=== PATIENT | female | born 1940 | race Caucasian/White ===

== ENCOUNTER 2016-11-03 22:39 | Inpatient (IN) | payer OTHER, MEDICARE, BC ==
[~2016-11-03] VITALS: Ht 162.6 cm; Wt 83.8 kg
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
--- NOTE | ~2016-11-03 | OR ---
PATIENT'S NAME: TG DAY [facility] AGE: 76 Y [address] ROOM: [place] [address] LOCATION: [facility] ADMIT DATE: 11/03/2016 OR/Procedure Report DISCHARGE DATE: FAMILY PHYSICIAN: Reyes Crouch MD ATTENDING PHYSICIAN: Noel Ellis SURGEON: Noel Ellis MD FEATHER DUSTER WINDER: DATE OF PROCEDURE: 11/06/2016 PREOPERATIVE DIAGNOSIS: Right rib fractures with effusion. POSTOPERATIVE DIAGNOSIS: Right rib fractures with effusion. PROCEDURE: Right tube thoracostomy. FINDINGS: A 1000 mL of bloody fluid was obtained almost immediately. COMPLICATIONS: None. DESCRIPTION OF PROCEDURE: After informed consent was obtained in the patient's room, she was supine. Her right chest was cleansed with ChloraPrep and sterilely draped. Local anesthetic was then infiltrated on the right chest wall. A small stab incision was created. An aspiration needle was then inserted beneath the intercostal spaces. Blood was aspirated. Upon initial aspiration of the blood, a wire was then threaded using Seldinger technique. The needle was removed. The wire remained. A dilator was then placed over the wire followed by insertion of a 20-Portuguese chest tube. This was placed to suction. Approximately 1 L of bloody fluid was obtained. The chest tube was sewn into position and placed to suction. NOEL ELLIS MD BJO/modl /[id number] d: 11/06/161851 t: 11/24/16 1404, OPERATIVE SUMMARY
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
[2016-11-04 04:25] LABS: BASOPHIL % 0.2 %; HEMATOCRIT 39.2 % (33.0-46.0); HEMOGLOBIN 13.3 g/dL (10.0-15.0); IMMATURE GRANULOCYTE # 0.1 K/uL (0.0-0.3); IMMATURE GRANULOCYTE % 0.7 %; LYMPHOCYTE # 0.7 K/uL (0.8-4.0); LYMPHOCYTE % 4.8 %; MCH 33.3 pg (27.0-34.0); MCHC 33.9 gm/dL (32.0-36.5); MCV 98.2 fl (83.0-98.0); MONOCYTE # 0.8 K/uL (0.0-1.0); MONOCYTE % 5.4 %; MPV 9.3 fl (9.4-12.4); NEUTROPHIL # (ANC) 13.1 K/uL (1.8-7.8); NEUTROPHIL % 88.9 %; NRBC % 0 /100WBC (0-0.00); PLATELET COUNT 247 K/uL (150-450); RBC 3.99 M/uL (3.50-5.50); RDW-CV 13.4 % (11.9-14.6); WBC 14.7 K/uL (4.0-11.0)
[2016-11-04 04:45] LABS: ALBUMIN 3.1 gm/dL (3.5-5.0); ALK PHOS 90 IU/L (33-138); ALT 58 IU/L (12-78); ANION GAP 12.6 (10.0-19.0); AST 84 IU/L (10-40); BLOOD UREA NITROGEN 10 mg/dL (6-24); CALCIUM 7.7 mg/dL (8.5-10.5); CHLORIDE 99 mMol/L (96-110); CO2 27 mMol/L (22-32); CREATININE 0.7 mg/dL (0.5-1.1); ESTIMATED GFR (MDRD EQUATION) > 60; POTASSIUM 3.6 mMol/L (3.7-5.1); SODIUM 135 mMol/L (135-145); TOTAL BILIRUBIN 0.7 mg/dL (0.0-1.5); TOTAL PROTEIN 6.6 g/dL (6.0-8.4)
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
--- NOTE | 2016-11-04 05:24 | NUR ---
Significant Event: A/OX3. DENIES NUMBNESS AND TINGLING. MOVES ALL EXTREMITIES SPONTANEOUSLY AND TO COMMAND. PAIN TO LOWER BACK. ON DILAUDID HANSARD REPORTER. 0.1MG/HR CONTINUOUS, 0.1MG DEMAND Q 10 MINUTES. PATIENT USED 1.32MG THIS SHIFT WITH 12 DEMANDS AND 10 DELIVERED DEMANDS. LEFT FOREARM IV IN LEFT AC RUNNING DILAUDID HANSARD REPORTER AND D5 1/2NS 20MEQ K AT 75/HR. VSS ON 3L OF O2. LUNGS SOUND CLEAR AND UPPER LOBES AND DIMINISHED WITH RHONCHI IN LOWER LOBES. HARDING CATHETER INTACT. SCDS INTACT. Follow up: PT TO SEE TODAY. PAIN CONTROL.
[2016-11-04] MEDS ORDERED: K-TAB 10MEQ10 MEQ PO (08:55)
[2016-11-04] MEDS ORDERED: TYLENOL325 MG PO (08:56)
[2016-11-04] MEDS ORDERED: LOSARTAN-HCTZ1 EAC1 PO (08:56)
[2016-11-04] MEDS ORDERED: LEVOTHROID(SY175 MCG PO (08:56)
--- NOTE | 2016-11-04 14:45 | NUR ---
Introduced self and CM role to Missy. She states that she lives at home in [place] with her . It is her ulimate goal to return there when she can. I explained to her that I had reviewed her chart and it was my understanding that physicians felt like she might benefit from a short stay at the [facility] before she goes home. She would be in agreement with this. States that her PCP is Dr. Rome at [place]. I let her know I would call/fax in a referral to them today and then see when they might be able to accept. She was in agreement with this. Missy says her can come and pick her up to transport her to the [facility] when she is ready to go. I did call over to [facility], left a VM with Roma re:Missy's referral. I also faxed over the initial referral paperwork to her as well. Let her know that she would be ready in the next 1-2 days. No other questions, needs or concerns. Will continue to follow and assist. Later got a VM from Roma stating that she got my fax & they were reviewing it and would call me back tomorrow for an update and confirmation that they could accept her when she was ready for discharge.
--- NOTE | 2016-11-04 16:10 | NUR ---
Significant Event: A&Ox3. VSS. 2A with GB/walker. Denies numbness and tingling. Moves all extremities spontaneously and to command. Pain to right flank and lower back, worsened by movement and deep breathing. IV L) forearm in AC, running D5 1/2NS 20 MEQ K at 10 ml/hr, and dilaudid NET FINISHER 0.1 mg/hr continous with a 0.1 mg/hr demand Q 10 min. Lung sounds clear and diminished throughout, on 3L of O2. Patient vomited at 1330, Zofran 4 mg administered. 1 tab [place] given at 0800. Linares removed at 1615. Needs encouragement to ambulate. [facility] Wednesday? Follow up:
--- NOTE | 2016-11-05 04:28 | NUR ---
Significant Event: A/OX3. VSS. MOVES ALL EXTREMITIES SPONTANEOUSLY AND TO COMMAND. PAIN IN LOWER BACK WORSE WITH MOVEMENT. IV TO LEFT FOREARM RUNNNING D5 1/2 NS 20MEQ K AT 10ML/HR AND DILAUDID AIRCRAFT STRUCTURAL FITTER. 0.1MG/HR CONTINUOUS; DEMAND 0.1MG Q 10 MINS. LUNGS CLEAR AND DIMINISHED ON 3L OF O2. NORCO GIVEN FOR BREAK THROUGH PAIN AT 0300. Follow up: SNF IN [facility] WEDNESDAY. PAIN CONTROL.
--- NOTE | 2016-11-05 10:03 | NUR ---
Call from Roma Newsome from [facility] this morning. Roma states that they can accept upon discharge and they could either accept on Wednesday or Wednesday. Dr. Rome will accept, is his cell phone number for report. RN to RN number for report is [phone], ask for nursing specialist. I left a sticky note on the front of the chart with all of the above information. I updated Missy to this, she states that her will transport her when she is ready to go to [facility]. Fax cover letter is on the chart and filled out so orders can be faxed prior to her leaving. RN La & Amy updated to all of the above. Plan for possible dismissal to [facility] tomorrow via personal auto if cleared by MD to do so. Will continue to follow and assist.
--- NOTE | 2016-11-05 13:25 | NUR ---
Significant Event: Patient A/O X3. Denies N/T. PERRLA. Moves everything spontaneously. Follows commands. VSS. Afebrile. 1L NC with sats in the mid 90s. LS clear and diminished. Voids per commode. BS hypoactive. Regular diet. R) flank bruised. L) AC PIV SLL. LEAF FAT SCRAPER D/Cd this shift. [place] X2 tabs given q4h for pain. PRN. 1 assist with gaitbelt and walker. Pleasant and cooperative with cares. Follow up: [facility] tomorrow at 1100
--- NOTE | 2016-11-06 01:29 | NUR ---
Significant Event: AAOx3, denies N/T. PERRLA 3mm brisk. Systolic 140-160's, to keep SBP <160, Labetalol prn. HR 80's. L.S. clear and diminished in upper lobes, diminished in bases with expiratory wheeze present, on 1L via [place] produces 500 on I.S. B.S. active, last BM 11/03. Urinates per 1PA walker to BR. PIV L) AC SL'd. Motrin given last 2244, 2 [place]'s given Q4Hrs prn, Zofran given at 0030, rates pain 5-6/10. Follow up: [facility] at 1100.
--- NOTE | 2016-11-06 09:52 | NUR ---
Call from battery charger tester Kyla letting me know that Dr. Tamayo was going to be putting chest tubes in [facility] this morning so she wouldn't be able to go to the [facility] like originally planned. I called and let SUZANNE Brandon at [facility] know that she wouldn't be coming today. She was fine with this, states that she would like an update on Wednesday and we will try to get her there at that time. No other questions, needs or concerns. Will continue to follow and assist. Plan for [facility] on Wednesday if medically cleared to do so at that time.
--- NOTE | 2016-11-06 16:00 | NUR ---
Significant Event: Alert and oriented x3. Follows commands. Pain to R) chest [place] given. Nausea, zofran given. If vomiting occurs to place an NG. Up to bathroom 1 assist, bathed this shift. 1L NC, R) chest tube placed per Dr. Jennings, 1450 ml out this shift. Dressing to R) lateral chest C/D/I. Afebrile. L) AC IV saline locked. Ambulates with a walker. Cooperative with cares. Family at bedside. Follow up: monitor.
--- NOTE | 2016-11-07 03:24 | NUR ---
Significant Event: AAOx3, denies N/T. PERRLA 3mm brisk. Equal moderate strength throughout all extremities. Systolic 100-120's, HR 80's. L.S. clear and diminished throughout, slightly more diminished in RLL; CT dressing changed, continuous suctioning with no crepitus or fluctuations in water seal chamber, 250 out this shift to R) lateral chest, produces 625 at best with I.S. B.S. active, abdomen distended, tenderness RLQ, occasional episodes of nausea without vomitting, 2 large loose BM's this shift. Urinates per 1PA walker to BR no complications. PIV L) AC SL'd. [place] diet. C/O pain 02/27; patient states tolerable without medication. Follow up: Stress I.S., TC&DB, monitor CT site. Pain Control, monitor for nausea. Plan for NG insertion if pt has episode of emesis.
[2016-11-07 06:31] LABS: BASOPHIL % 0.2 %; EOSINOPHIL # 0.1 K/uL (0.0-0.5); EOSINOPHIL % 0.8 %; HEMOGLOBIN 10.5 g/dL (10.0-15.0); IMMATURE GRANULOCYTE # 0.1 K/uL (0.0-0.3); IMMATURE GRANULOCYTE % 0.8 %; LYMPHOCYTE # 0.9 K/uL (0.8-4.0); LYMPHOCYTE % 8.1 %; MCH 32.6 pg (27.0-34.0); MCHC 34.1 gm/dL (32.0-36.5); MCV 95.7 fl (83.0-98.0); MONOCYTE # 1.3 K/uL (0.0-1.0); MONOCYTE % 12.3 %; MPV 9.5 fl (9.4-12.4); NEUTROPHIL # (ANC) 8.5 K/uL (1.8-7.8); NEUTROPHIL % 77.8 %; NRBC % 0 /100WBC (0-0.00); PLATELET COUNT 239 K/uL (150-450); RBC 3.22 M/uL (3.50-5.50); WBC 10.9 K/uL (4.0-11.0)
[2016-11-07 06:32] LABS: HEMATOCRIT 30.8 % (33.0-46.0)
[2016-11-07 06:44] LABS: ANION GAP 9.8 (10.0-19.0); BLOOD UREA NITROGEN 13 mg/dL (6-24); CALCIUM 7.8 mg/dL (8.5-10.5); CHLORIDE 83 mMol/L (96-110); CO2 33 mMol/L (22-32); CREATININE 0.6 mg/dL (0.5-1.1); ESTIMATED GFR (MDRD EQUATION) > 60; POTASSIUM 3.8 mMol/L (3.7-5.1); SODIUM 122 mMol/L (135-145)
[2016-11-07 13:21] LABS: BLOOD UREA NITROGEN 12 mg/dL (6-24); CREATININE 0.7 mg/dL (0.5-1.1); ESTIMATED GFR (MDRD EQUATION) > 60; POTASSIUM 3.9 mMol/L (3.7-5.1)
[2016-11-07 13:29] LABS: ANION GAP 12.9 (10.0-19.0); CHLORIDE 77 mMol/L (96-110); CO2 35 mMol/L (22-32); SODIUM 121 mMol/L (135-145)
--- NOTE | 2016-11-07 16:13 | NUR ---
Significant Event: Alert and oriented. Chest tube to rt lateral side with 160ml out of serosang. drainage. O2 at 1L per nasal cannula. [place] for pain. 100ml emesis at 1330 after having RT treatment. Sodium level 121. NS IV started. No free fluids. Drinking gatoade. Up to BR/chair with walker and one assist. Loose BM x4 after laxatives given yesterday and MOM this am. Follow up:
[2016-11-07 18:30] LABS: BLOOD UREA NITROGEN 11 mg/dL (6-24); CO2 34 mMol/L (22-32); CREATININE 0.6 mg/dL (0.5-1.1); ESTIMATED GFR (MDRD EQUATION) > 60; POTASSIUM 3.9 mMol/L (3.7-5.1)
[2016-11-07 18:41] LABS: ANION GAP 11.9 (10.0-19.0); CALCIUM 7.4 mg/dL (8.5-10.5); CHLORIDE 79 mMol/L (96-110); SODIUM 121 mMol/L (135-145)
[2016-11-08 05:18] LABS: BLOOD UREA NITROGEN 10 mg/dL (6-24); CO2 33 mMol/L (22-32); CREATININE 0.7 mg/dL (0.5-1.1); ESTIMATED GFR (MDRD EQUATION) > 60; POTASSIUM 3.9 mMol/L (3.7-5.1); SODIUM 125 mMol/L (135-145)
[2016-11-08 05:27] LABS: ANION GAP 10.9 (10.0-19.0); CALCIUM 7.4 mg/dL (8.5-10.5); CHLORIDE 85 mMol/L (96-110)
--- NOTE | 2016-11-08 05:27 | NUR ---
NEURO: A&O x3. PERRLA. CARDIO: Tele. VSS. RESP: Diminished. 1 ltr. IS at bedside. GI/: BSC used so we could keep chest tube to suction. Loose stools x 2 this shift. SKIN: Chest tube to right lateral side. 170ml of serosangnous fluid out this shift. Continuos suction. No water to drink d/t low Na- gatorade in fridge. ACTIVITY: 1 assist to chair and BSC. IV: NS @ 100. PAIN: Scheduled [place]. Toradol given last night at 0145.
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
--- NOTE | 2016-11-08 14:31 | NUR ---
Significant Event: vss. alert and oriented. up with sba walker and gaitbelt. chest tube to water seal today. chest xray ordered for tomorrow. Possible transfer to [facility] tomorrow per patient family. scheduled pain medications. When sleeping patient may need 1L oxygen Follow up: monitor
[2016-11-09 04:28] LABS: BLOOD UREA NITROGEN 9 mg/dL (6-24); CO2 31 mMol/L (22-32); CREATININE 0.5 mg/dL (0.5-1.1); ESTIMATED GFR (MDRD EQUATION) > 60; POTASSIUM 3.6 mMol/L (3.7-5.1); SODIUM 126 mMol/L (135-145)
[2016-11-09 04:31] LABS: ANION GAP 10.6 (10.0-19.0); CALCIUM 7.1 mg/dL (8.5-10.5); CHLORIDE 88 mMol/L (96-110)
--- NOTE | 2016-11-09 06:51 | NUR ---
A&O x 3. VSS. 1 assit with gait belt and walker. Chest tube to water seal. Scheduled pain meds. Possible transfer to [place] today.
--- NOTE | 2016-11-09 15:32 | NUR ---
A&O. VSS. CX TUBE TO H20 SEAL 120ML [place]. LS CLEAR. VD'S WELL. LOOSE BM X6 TODAY PA DOES NOT WANT IMMODIUM. CSN WNL. SBA. NA LOW NO H20 GATOERADE IN [place]. SCHED NORCO FOR PAIN. 1L O2 AT [facility]. PLAN IS HOME IN A FEW DAYS
--- NOTE | 2016-11-09 15:44 | NUR ---
Visited with monorail charger operator Amy who had talked with Dr. Jennings earlier today. Per Amy, Dr. Jennings is going to continue to watch her CT for a few more days and since she is doing well with therapies, she will most likely just be able to go straight home from here. I let Amy know this was fine and we would just plan on home from here. I did go in and talk with Missy about this plan, she is also in agreement and states that her will be around to help her out if she needs it. Will continue to follow and assist. Plan home. Updated SWB to this as well so they knew at this point, they wouldn't be getting her upon dismissal.
--- NOTE | 2016-11-09 16:33 | NUR ---
Significant Event: ASSUMED CARES AT 1515. A/O X 3. DENIES NUMBNESS/TINGLING. C/O PAIN TO RT SIDE, SCHEDULED NORCO GIVEN WELL MADE PATIENT AWARE SHE DOES HAVE PRN MEDS IF NEEDED. ALSO WAS NAUSEATED , SO ZOFRAN GIVEN. UP WITH STANDBY ASSIST. CHEST TUBE REMAINS TO WATER SEAL. NO CHANGES PER TIMOTHY MAR'S ASSESSMENT. Follow up: HOME IN A FEW DAYS. PAIN CONTROL.
--- NOTE | 2016-11-10 04:17 | NUR ---
Significant Event: A&Ox3, VSS on room air, 1L O2 applied at HS. Right chest tube intact with flucuations with respirations, 100ml out to gravity. Loose BMs this shift. Transfers with SBA to bathroom with walker. Scheduled [place] for pain control. Pleasant and cooperative with cares. Follow up: possible D/C to home in next few days.
[2016-11-10 05:39] LABS: ALBUMIN 2.3 gm/dL (3.5-5.0); ANION GAP 11.6 (10.0-19.0); BLOOD UREA NITROGEN 7 mg/dL (6-24); CALCIUM 7.7 mg/dL (8.5-10.5); CHLORIDE 91 mMol/L (96-110); CO2 32 mMol/L (22-32); CREATININE 0.5 mg/dL (0.5-1.1); ESTIMATED GFR (MDRD EQUATION) > 60; PHOSPHORUS 3.4 mg/dL (2.5-4.9); POTASSIUM 3.6 mMol/L (3.7-5.1); SODIUM 131 mMol/L (135-145)
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
--- NOTE | 2016-11-11 01:07 | NUR ---
SIGNIFICANT EVENT: PATIENT A/0 X 3. PERRLA. MOVES ALL EXTREMITIES SPONTANEOUSLY AND TO COMMAND. DENIES N/T/HEADACHE. AMBULATES 1 ASSIST/SBA GAITBELT WALKER. ROOM AIR. LUNGS CLEAR. CHEST TO RIGHT SIDE. RIB AND BACK PAIN THIS SHIFT. SCHEDULED NORCO GIVEN. MOTRIN GIVEN X 1. L FA IV SL. NO BM. FOLLOW UP:
[2016-11-11 04:04] LABS: BASOPHIL # 0.1 K/uL (0.0-0.2); BASOPHIL % 0.6 %; EOSINOPHIL # 0.3 K/uL (0.0-0.5); EOSINOPHIL % 3.9 %; HEMATOCRIT 28.4 % (33.0-46.0); HEMOGLOBIN 9.6 g/dL (10.0-15.0); IMMATURE GRANULOCYTE # 0.1 K/uL (0.0-0.3); IMMATURE GRANULOCYTE % 1.4 %; LYMPHOCYTE # 1.6 K/uL (0.8-4.0); LYMPHOCYTE % 18.4 %; MCH 33.1 pg (27.0-34.0); MCHC 33.8 gm/dL (32.0-36.5); MCV 97.9 fl (83.0-98.0); MONOCYTE # 0.9 K/uL (0.0-1.0); MONOCYTE % 10.8 %; MPV 8.5 fl (9.4-12.4); NEUTROPHIL # (ANC) 5.6 K/uL (1.8-7.8); NEUTROPHIL % 64.9 %; NRBC % 0 /100WBC (0-0.00); RDW-CV 13.2 % (11.9-14.6); WBC 8.7 K/uL (4.0-11.0)
[2016-11-11 04:12] LABS: PLATELET COUNT 313 K/uL (150-450)
[2016-11-11 04:21] LABS: ALBUMIN 2.2 gm/dL (3.5-5.0); ANION GAP 11.8 (10.0-19.0); BLOOD UREA NITROGEN 8 mg/dL (6-24); CALCIUM 7.8 mg/dL (8.5-10.5); CHLORIDE 92 mMol/L (96-110); CO2 32 mMol/L (22-32); CREATININE 0.6 mg/dL (0.5-1.1); ESTIMATED GFR (MDRD EQUATION) > 60; POTASSIUM 3.8 mMol/L (3.7-5.1); SODIUM 132 mMol/L (135-145)
--- NOTE | 2016-11-11 06:50 | NUR ---
SIGNIFICANT EVENT: Patient is alert and oriented x 3. Denies numbness or tingling. C/O rib/back pain controlled with PO [place]. Moves spontaneously and to commands. Equal strengths. PERRL. VSS. Afebrile. 1PA, gait belt, walker. On room air until around 0530 then placed on 2L NC. Lungs clear. Chest tube to right side had 90 mL out this shift. SCDs in place. Bowel sounds active. No BM this shift. Voids without difficulty per restroom. Generalized bruising. FOLLOW UP: pain management, chest tube, activity, monitor respiratory status
--- NOTE | 2016-11-11 09:45 | NUR ---
A - NA+ 132, GLU 92, BUN/MERCHANDISER SEASONAL 8/0.6, ALB 2.2. DIET: REGULAR W/ INTAKE IMPROVED TO 50-100%. TWO ENSURE OFFERED TID. PT STATES APPETITE NO GREAT D/T PAIN. PT HAS A SURPLUS OF ENSURE BOTTLES AT BEDSIDE. D - INTAKE INADEQUATE AT TIMES R/T DECREASED APPETITE AEB INTAKE RECORD, PT REPORT. I - GOAL: CONTINUED 50-100% INTAKE. M/E - WILL DECREASE ENSURE TO ONE, TID W/ MEALS AND CONT TO MONITOR AND ENCOURAGE INTAKE.
--- NOTE | 2016-11-11 15:29 | NUR ---
Significant Event: A/O x3. Denies N/T. Follows commands. Moves everything spontanously. VSS. Room air during the day, 1L at HS. Sats in the mid 90s. LS clear and diminished. CT to right flank. Ecchymotic areas to right flank and chest. Voids per toilet. BS active X4. Small BM this shift. L) forearm PIV SLL. Flushes with no complications. 1 assist with gaitbelt and walker. Scheduled [address] given for pain. Ibuprofen given this AM around 10 am. at bedside. Pleasant and cooperative with cares. Follow up:
[2016-11-12 04:39] LABS: ANION GAP 14.2 (10.0-19.0); BLOOD UREA NITROGEN 10 mg/dL (6-24); CALCIUM 7.9 mg/dL (8.5-10.5); CHLORIDE 93 mMol/L (96-110); CO2 28 mMol/L (22-32); CREATININE 0.5 mg/dL (0.5-1.1); ESTIMATED GFR (MDRD EQUATION) > 60; POTASSIUM 4.2 mMol/L (3.7-5.1); SODIUM 131 mMol/L (135-145)
--- NOTE | 2016-11-12 04:46 | NUR ---
Significant event: Patient is alert and oriented x 3. Denies numbness or tingling. C/O rib/back pain controlled with scheduled [place]. Moves spontaneously and follows commands. Equal strengths, strong to BLE and moderate to upper extremities. PERRL. VSS. Afebrile. HTN. 1PA, gait belt, walker. On room air. Lungs clear and diminished in the left lobes, slightly coarse in the right lobes. Chest tube to right side had 70 mL out this shift. SCDs in place. Bowel sounds active. No BM this shift. Voids without difficulty per restroom. Generalized bruising. IV SL to left forearm with no complications. FOLLOW UP: pain management, chest tube, activity, monitor respiratory status
--- NOTE | 2016-11-12 14:57 | NUR ---
Significant Event: Patient is alert and oriented x3. VSS and titrated from 1 liter of O2 to Room air. Tolerated well. States she has some numbness and tingling in her left hand. Trace of edema to that hand. Moves spontaeously. Up with 1PA/walker and gait belt. Has ambulated in the amor with PT and worked with OT today. Does very well. Equal strength. Chest tube to the right side- no crepitus noted. Lung sounds clear and diminished. No suction. IV to the L)AC, SL. No complications. Complaints of pain to the right side and back- scheduled norco given and relief noted. Moitrin given this morning around 8-9 this morning. Relief noted. Bag bath given by the STAVE BLOCK SPLITTER this morning. BM this morning. Cooperative with cares.
--- NOTE | 2016-11-13 04:37 | NUR ---
SIGNIFICANT EVENT: PATIENT A/O X 3. PERRLA. N/T TO LEFT HAND. MOVES ALL EXTREMITIES SPONTANEOUSLY AND TO COMMAND. AMBULATES SBA/1 ASSIST, GB/WALKER. DENIES HEADACHE. COMPLAINS OF DIZZINESS AT TIMES WHEN AMBULATING, BUT DOES NOT BECOME UNSTEADY. HTN AT TIMES. SCDS INTACT. CHEST TUBE TO RIGHT FLANK INTACT, OUTPUT=90 ML THIS SHIFT. PAIN TO RIGHT FLANK AND BACK. ENCOURAGED INCENTIVE SPIROMETER AND DEEP BREATHING. MOTRIN GIVEN X 1 THIS SHIFT. SCHEDULED PAIN MEDS GIVEN. PIV TO L) AC SL. NO FREE WATER DUE TO SODIUM LEVEL. GATORADE AT BEDSIDE. FOLLOW UP: ENCOURAGE INCENTIVE SPIROMETER AND AMBULATION.
--- NOTE | 2016-11-13 17:25 | NUR ---
Significant Event: a/o x 3. c/o pain to right side of back. scheduled noria for pain management. does have numbness/tingling to left hand. shortness of breath with minimal exertion. tele with NSR. ambulates with walker and SBA. Gait steady. Chest tube to right side of chest with 100ml out this shift. DSG changed to chest tube insertion site. Chest tube to water seal. Moderate bowel movements this shift and voids without difficulty. Takes meds whole. Cardiac diet. Discharge plan- home when ready.
--- NOTE | 2016-11-14 04:06 | NUR ---
Significant Event: A/OX3. STATES TINGLING TO LEFT HAND. MOVES ALL EXTREMITIES SPONTANEOUSLY AND TO COMMAND. AMBULATES SBA WITH GAIT BELT AND WALKER. SHORTNESS OF BREATH WITH ACTIVITY. LUNGS CLEAR AND DIMINISHED. VSS ON ROOM AIR. CHEST TUBE TO RIGHT CHEST, WATER SEALED WITH 20ML OUT THIS SHIFT. PAIN TO RIGHT FLANK AND BACK - CONTROLLED WITH SCHEDULED TYLENOL AND PRN MOTRIN. ENCOURAGED INCENTIVE SPIROMETER. SCDS INTACT. PERIPHERAL IV TO LEFT AC SALINE LOCKED. NO FREE WATER. Follow up:
--- NOTE | 2016-11-14 14:39 | NUR ---
Significant Event: A/O X3, 1 assist/gait belt/walker. R)chest tube to H2O seal. ecchymotic R)flank/side area. slight SOB with activity, lungs diminished BLL. voids per toilet, BM today. good appetite. motrin @ 1435. family @ bedside. saline lock L)AC, Follow up: NO free H2O, plan for home when ready
--- NOTE | 2016-11-15 05:03 | NUR ---
Significant event: Patient is alert and oriented x 3. Tingling to left hand. C/O rib/back pain controlled with scheduled [place]. Moves spontaneously and follows commands. Equal strengths. PERRL. VSS. Afebrile. HTN. 1PA, gait belt, walker. On room air. Lungs clear and diminished. Chest tube to right side had 70 mL out this shift. SCDs in place. Bowel sounds active. No BM this shift. Voids without difficulty per restroom. Generalized bruising. IV SL to left AC with no complications. Regular diet with good appetite. Follow up: pain management, chest tube, activity, monitor respiratory status, no free water, needs gatorade ordered at breakfast
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
[2016-11-16 04:57] LABS: ANION GAP 11.7 (10.0-19.0); BLOOD UREA NITROGEN 10 mg/dL (6-24); CHLORIDE 96 mMol/L (96-110); CO2 29 mMol/L (22-32); CREATININE 0.6 mg/dL (0.5-1.1); ESTIMATED GFR (MDRD EQUATION) > 60; POTASSIUM 3.7 mMol/L (3.7-5.1); SODIUM 133 mMol/L (135-145)
--- NOTE | 2016-11-16 04:58 | NUR ---
Significant event: Patient is alert and oriented x 3. C/O pain that is controlled with schedule [place]. Moves spontaneously and follows commands. Equal strengths. PERRL. VSS. Afebrile. HTN. 1PA, gait belt, walker. On room air. Lungs clear and diminished. Chest tube to right side had 50 mL out this shift. SCDs in place. Bowel sounds active. No BM this shift. Voids without difficulty per restroom. Generalized bruising. IV SL to left AC with no complications. Regular diet with good appetite. Follow up: pain management, chest tube, activity, monitor respiratory status, no free water
--- NOTE | 2016-11-16 11:46 | NUR ---
A - NUT F/U. CHEST TUBE. EATING WELL. LABS: NA 133, ALB 2.2 MEDS: KCL, SYNTRHOID, BOWEL/NAUSEA DIET: REG. INTAKE: 75-100% 2 ENSURE TID NEEDS: 5161-2290 KCAL, 81-108 G PRO D - NO NUTRITION RELATED DIAGNOSIS IDENTIFIED AT THIS TIME. I - GOAL FOR INTAKE TO REMAIN 75-100% FOR DURATION OF STAY. WILL CHANGE ENSURE TO 1 BOTTLE BID TO MAINTAIN NUTRITION STATUS. M/E - WILL ASSIST NEEDED.
--- NOTE | 2016-11-16 12:23 | NUR ---
Talked with patient today, still planning on going home on discharge, denies concerns about going home. Says her daughter from [place] flying in to stay with her a week when she gets home. Denies needs. Will follow.
--- NOTE | 2016-11-16 17:07 | NUR ---
Significant Event: A/O X3, 1 assist/gait belt, ambulates in amor, up in chair all shift, good appetite. motrin last @ 1530 for breakthrough pain, lungs diminished BLL, Chest tube removed today, guaze/tegaderm intact over chest tube site. L)AC saline lock, voids per toilet, BM today . Follow up: C-XRAY in am - plan for home tomorrow
[2016-11-16 23:40] LABS: BASOPHIL # 0.1 K/uL (0.0-0.2); BASOPHIL % 0.7 %; EOSINOPHIL # 0.4 K/uL (0.0-0.5); EOSINOPHIL % 3.9 %; HEMATOCRIT 31.9 % (33.0-46.0); HEMOGLOBIN 10.7 g/dL (10.0-15.0); IMMATURE GRANULOCYTE # 0.1 K/uL (0.0-0.3); IMMATURE GRANULOCYTE % 1.2 %; LYMPHOCYTE # 2.2 K/uL (0.8-4.0); LYMPHOCYTE % 21.2 %; MCH 32.8 pg (27.0-34.0); MCHC 33.5 gm/dL (32.0-36.5); MCV 97.9 fl (83.0-98.0); MPV 8.4 fl (9.4-12.4); NEUTROPHIL # (ANC) 6.5 K/uL (1.8-7.8); NRBC % 0 /100WBC (0-0.00); RBC 3.26 M/uL (3.50-5.50); RDW-CV 13.4 % (11.9-14.6); WBC 10.3 K/uL (4.0-11.0)
[2016-11-16 23:42] LABS: PLATELET COUNT 459 K/uL (150-450)
[2016-11-16 23:55] LABS: ANION GAP 13.5 (10.0-19.0); BLOOD UREA NITROGEN 14 mg/dL (6-24); CALCIUM 7.8 mg/dL (8.5-10.5); CHLORIDE 97 mMol/L (96-110); CO2 28 mMol/L (22-32); CREATININE 0.7 mg/dL (0.5-1.1); ESTIMATED GFR (MDRD EQUATION) > 60; MAGNESIUM 1.8 mg/dL (1.3-2.6); POTASSIUM 3.5 mMol/L (3.7-5.1); SODIUM 135 mMol/L (135-145)
[2016-11-17 00:17] LABS: CPK 28 IU/L (21-215)
--- NOTE | 2016-11-17 03:43 | NUR ---
Significant Event: The patient is Alert and Oriented x3. Denies Numbness and [place]. Moves all extremities spontaneously and to command. Up with 1 Assist, Gaitbelt and Walker. Pain to Right ribs gave scheduled pain medications. VSS, On Room air. The patient did have an episode of Tachycardia with rates 130-150's around 2305, Dr. Krystin Jackson called order for EKG, Chest xray, and labs done. Dr. Ellis came and assessed the patient, around 2345 the patient's heart rate went back down to the 80's- no further orders received. PIV to the Left AC saline locked. Traced edema to bilateral lower legs. Bruising to the patients Right side from armpit to hip. Dressing from the previous chest tube is Dry and Intact. Lungs are Clear and Diminished in the Upper Right lobe and Diminished in the lower right lobe. Left side is Clear to clear and diminished. Regular diet-no free water. Follow up:
[2016-11-17 06:35] LABS: CPK 26 IU/L (21-215)
--- NOTE | 2016-11-17 12:15 | NUR ---
Significant Event: Patient is A&OX3. Moves all extremeties upon command and spontaneously. Up one assist with gait belt and walker. Regular diet with No free water. Scheduled norco for pain with PRN motrin for break through. On Room Air. Chest tube dressing dry and intact. Left AC IV saline locked. Small BM this am. Voids per toilet.
[2016-11-17] MEDS ORDERED: ADVIL200 MG PO (13:13)
[2016-11-17] MEDS ORDERED: NORCO 5-325 TA1 EACH PO (13:14)
== END 2016-11-17 13:43 | disposition disaster alternative care site (69) | DRG 183 ==
LOC: GACC 22:39 → GNTU 23:58
PROVIDERS: Internal Medicine Critical Care Medicine; Physician Assistant; ADMIT Surgery
PROC: 0W9930Z Drainage of Right Pleural Cavity with Drainage Device, Percutaneous Approach (ICD-10-PCS; principal; 2016-11-06)
DX: S22.43XA Multiple fractures of ribs, bilateral, initial encounter for closed fracture (principal); S27.2XXA Traumatic hemopneumothorax, initial encounter; K56.7 Ileus, unspecified; T79.7XXA Traumatic subcutaneous emphysema, initial encounter; J90 Pleural effusion, not elsewhere classified; E87.1 Hypo-osmolality and hyponatremia; V43.61XA Car passenger injured in collision with sport utility vehicle in traffic accident, initial encounter; R00.0 Tachycardia, unspecified; I10 Essential (primary) hypertension; E89.0 Postprocedural hypothyroidism; J44.9 Chronic obstructive pulmonary disease, unspecified; Z85.850 Personal history of malignant neoplasm of thyroid; Z85.828 Personal history of other malignant neoplasm of skin; Z92.3 Personal history of irradiation; Z96.651 Presence of right artificial knee joint; Z96.643 Presence of artificial hip joint, bilateral; E87.6 Hypokalemia
CPT/HCPCS: J1170; J1650; J1885; J2270; J2405; J3480; J7030